=== PATIENT | female | born 2005 | race Caucasian/White ===

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

== ENCOUNTER 2024-01-21 17:14 | Emergency (ER) | payer BC ==
[2024-01-21] MEDS: Famotidine 20 MG Tab PO STA (18:54)
[2024-01-21] MEDS: predniSONE 20 MG Tab PO STA (18:54)
== END 2024-01-21 19:01 | disposition home or self-care (01) ==
LOC: MW.ED 17:14
DX: T78.40XA Allergy, unspecified, initial encounter (principal); Z75.8 Other problems related to medical facilities and other health care; Z79.899 Other long term (current) drug therapy; Z88.0 Allergy status to penicillin; Z88.8 Allergy status to other drugs, medicaments and biological substances; Z88.1 Allergy status to other antibiotic agents
CPT/HCPCS: 99282; A9270; 99283

== ENCOUNTER 2024-04-22 22:50 | Emergency (ER) | payer BC ==
[2024-04-22] MEDS: Ibuprofen 600 MG Tab PO ONE (23:14)
[2024-04-22] MEDS: Acetaminophen 500 MG Tab PO ONE (23:14)
[2024-04-22] MEDS: Dexamethasone 4 MG/ML SDV IVPUSH ONE (23:22)
== END 2024-04-22 23:42 | disposition home or self-care (01) ==
LOC: MW.ED 22:50
DX: S46.912A Strain of unspecified muscle, fascia and tendon at shoulder and upper arm level, left arm, initial encounter (principal); Z88.0 Allergy status to penicillin; Z88.1 Allergy status to other antibiotic agents; Z88.8 Allergy status to other drugs, medicaments and biological substances; Z79.899 Other long term (current) drug therapy; X50.0XXA Overexertion from strenuous movement or load, initial encounter; Y92.511 Restaurant or cafe as the place of occurrence of the external cause
CPT/HCPCS: 73030; 96374; 99283; A9270; J1100